=== PATIENT | female | born 1930 | race Caucasian/White ===

== ENCOUNTER 2017-11-17 08:36 | Inpatient (IN) | payer MEDICARE, OTHER ==
[2017-11-17] MEDS: SOD CHLORIDE 0.9% 500 ML IV ×2 (09:22→17:45)
[2017-11-17 09:23] LABS: ABNORMAL IP MESSAGE 1; HEMATOCRIT 29.3 % (37.0-47.0); HEMOGLOBIN 9.3 g/dl (12.0-16.0); MEAN CORPUSCULAR HGB CONC 31.7 g/dl (32.0-37.0); MEAN CORPUSCULAR VOLUME 94.5 fl (82.0-101.0); MEAN PLATELET VOLUME 11.9 fl (7.4-10.4); PLATELET COUNT 80 10^3/UL (140-415); RED CELL DISTRIBUTION WIDTH 17.2 % (11.5-14.5)
[2017-11-17 09:23] LABS: WHITE BLOOD COUNT 14.4 10^3/ul (4.8-10.8)
[2017-11-17 09:26] LABS: ADD MAN DIFF? YES; POSITIVE DIFF @See below
[2017-11-17 09:40] LABS: ALANINE AMINOTRANSFERASE 29 IU/L (13-69); ALBUMIN 3.2 g/dl (3.3-4.9); ALBUMIN/GLOBULIN RATIO 0.72; ALKALINE PHOSPHATASE 120 IU/L (42-121); ANION GAP 29 (8-16); ASPARTATE AMINO TRANSFERASE 52 IU/L (15-46); BILIRUBIN,INDIRECT 0.1 mg/dl (0-1.1); BILIRUBIN,TOTAL 0.1 mg/dl (0.2-1.3); BLOOD UREA NITROGEN 31 mg/dl (7-20); CALCIUM 9.7 mg/dl (8.4-10.2); CARBON DIOXIDE 16 mmol/L (21-31); CHLORIDE 94 mmol/L (97-110); CREATININE 11.21 mg/dl (0.44-1.00); GLUCOSE 109 mg/dl (70-220); POTASSIUM 4.2 mmol/L (3.5-5.1); SODIUM 135 mmol/L (135-144); TOTAL PROTEIN 7.6 g/dl (6.1-8.1)
[2017-11-17 09:52] LABS: TROPONIN-I 0.014 ng/ml (0.000-0.120)
[2017-11-17 10:08] LABS: ANISOCYTOSIS 1+ (0-0); BAND NEUTROPHILS #M 0.7 10^3/ul (0.0-0.6); BAND NEUTROPHILS % (M) 5 % (0-4); EOSINOPHILS % (M) 1 % (0-7); LYMPHOCYTES #M 1.1 10^3/ul (0.8-2.9); LYMPHOCYTES % (M) 8 % (15-51); METAMYELOCYTES #M 0.2 10^3/ul (0.0-0.0); METAMYELOCYTES %M 2 % (0-0); MONOCYTE #M 1.2 10^3/ul (0.3-0.9); MONOCYTES % (M) 9 % (0-11); PLATELET ESTIMATE SIG DECREASED; POIKILOCYTOSIS 3+ (0-0); REACTIVE LYMPHOCYTES #M 0.7 10^3/ul (0.0-0.0); REACTIVE LYMPHOCYTES% (M) 5 % (0-0); SEG NEUT #M 10.2 10^3/ul (1.6-7.5); SEGMENTED NEUTROPHILS (M) % 70 % (39-77); SMUDGE%M 14 % (0-0)
[2017-11-17] MEDS: SODIUM CHLORIDE 0.9% 1L BAG IV* (11:09)
[2017-11-17] MEDS: CEFEPIME 2GM/50 ML (PMX) 50 ML IVPB (11:10)
[2017-11-17] MEDS: VANCOMYCIN 1 GM (PMX) 250 ML IVPB (11:26)
[2017-11-17 11:45] LABS: LACTIC ACID 14.4 mmol/L (0.5-2.0)
[2017-11-17] MEDS ORDERED: ACETAMINOPHEN 325 MG TAB PO ×2 (12:30→13:00)
[2017-11-17] MEDS ORDERED: NACL 0.9% 3 ML SYG IV (13:00)
[2017-11-17] MEDS ORDERED: HYDROCODONE/APAP (5/325) TAB PO (13:00)
[2017-11-17 13:21] LABS: FLD MN% 72.1 %; FLD PMN% 27.9 %; FLD RBC 0 /uL; FLD WBC 197 /cmm
[2017-11-17 13:23] LABS: LACTIC ACID 13.1 mmol/L (0.5-2.0)
[2017-11-17 13:28] LABS: FLUID TOTAL PROTEIN < 2.0 g/dl
[2017-11-17] MEDS: SOD CHLORIDE 0.9% 1,000 ML IV (13:44)
[2017-11-17 13:54] LABS: FLD CLARITY HAZY
[2017-11-17 13:54] LABS: FLD TYPE PARACENTHESIS
[2017-11-17 13:55] LABS: FLD COLOR COLORLESS; PATH REVIEW? YES
[2017-11-17] MEDS: HEPARIN 5,000 UNIT/0.5 ML VIAL SC ×2 (14:22→21:26)
[2017-11-17 15:57] LABS: LACTIC ACID 11.3 mmol/L (0.5-2.0)
[2017-11-17] MEDS: CALCIUM ACETATE 667 MG CAP PO (18:39)
[2017-11-17 19:41] LABS: HEPATITIS B SURFACE ANTIBODY NEGATIVE (NEGATIVE)
[2017-11-17] MEDS ORDERED: DIFLUPREDNATE RIGHT EYE (21:00)
[2017-11-17] MEDS: LATANOPROST 0.005% 2.5 ML OPH BOTH EYES (21:00)
[2017-11-17 21:48] LABS: HEPATITIS B SURFACE ANTIGEN NEGATIVE (NEGATIVE)
[2017-11-18] MEDS: ONDANSETRON 4 MG INJ IV (00:08)
[2017-11-18] MEDS: HEPARIN 5,000 UNIT/0.5 ML VIAL SC ×3 (05:07→21:44)
[2017-11-18] MEDS: PANTOPRAZOLE (EC) 40 MG TAB PO (08:07)
[2017-11-18] MEDS: MULTIVIT/CA CARB/B CMPLX/FA TAB PO (08:07)
[2017-11-18] MEDS: CALCIUM ACETATE 667 MG CAP PO ×3 (08:07→17:28)
[2017-11-18 08:13] LABS: WHITE BLOOD COUNT 13.7 10^3/ul (4.8-10.8)
[2017-11-18 08:14] LABS: ABNORMAL IP MESSAGE 1; HEMATOCRIT 28.2 % (37.0-47.0); MEAN CORPUSCULAR HEMOGLOBIN 30.2 pg (29.0-33.0); MEAN CORPUSCULAR HGB CONC 31.9 g/dl (32.0-37.0); MEAN CORPUSCULAR VOLUME 94.6 fl (82.0-101.0); MEAN PLATELET VOLUME 11.8 fl (7.4-10.4); PLATELET COUNT 68 10^3/UL (140-415); RED BLOOD COUNT 2.98 10^6/ul (4.20-5.40); RED CELL DISTRIBUTION WIDTH 17.9 % (11.5-14.5)
[2017-11-18 08:16] LABS: ADD MAN DIFF? YES; POSITIVE DIFF @See below
[2017-11-18 09:02] LABS: ANION GAP 29 (8-16)
[2017-11-18 09:11] LABS: BLOOD UREA NITROGEN 32 mg/dl (7-20); CALCIUM 8.7 mg/dl (8.4-10.2); CARBON DIOXIDE 14 mmol/L (21-31); CHLORIDE 98 mmol/L (97-110); CREATININE 9.71 mg/dl (0.44-1.00); GLUCOSE 114 mg/dl (70-220); MAGNESIUM 1.7 mg/dl (1.7-2.5); POTASSIUM 3.7 mmol/L (3.5-5.1); SODIUM 137 mmol/L (135-144)
[2017-11-18 10:20] LABS: ANISOCYTOSIS 1+ (0-0); BAND NEUTROPHILS #M 0.9 10^3/ul (0.0-0.6); BAND NEUTROPHILS % (M) 7 % (0-4); LYMPHOCYTES #M 1.5 10^3/ul (0.8-2.9); LYMPHOCYTES % (M) 11 % (15-51); METAMYELOCYTES #M 0.1 10^3/ul (0.0-0.0); METAMYELOCYTES %M 1 % (0-0); MONOCYTE #M 0.5 10^3/ul (0.3-0.9); MONOCYTES % (M) 4 % (0-11); PLATELET ESTIMATE SIG DECREASED; POIKILOCYTOSIS 2+ (0-0); POLYCHROMASIA 1+ (0-0); REACTIVE LYMPHOCYTES #M 1.5 10^3/ul (0.0-0.0); REACTIVE LYMPHOCYTES% (M) 11 % (0-0); SEG NEUT #M 9.2 10^3/ul (1.6-7.5); SEGMENTED NEUTROPHILS (M) % 66 % (39-77); SMUDGE%M 18 % (0-0)
[2017-11-18 11:41] LABS: FLD MN% 55.5 %; FLD PMN% 44.5 %; FLD RBC 0 /uL; FLD WBC 18 /cmm
[2017-11-18] MEDS: SOD CHLORIDE 0.9% 500 ML IV (12:07)
[2017-11-18 12:10] LABS: LACTIC ACID 11.2 mmol/L (0.5-2.0)
[2017-11-18] MEDS: DUREZOL 0.05% RIGHT EYE (12:15)
[2017-11-18] MEDS: ONDANSETRON 4 MG TAB PO ×2 (12:27→22:57)
[2017-11-18 13:21] LABS: FLD TYPE ABDOMINAL
[2017-11-18 13:22] LABS: FLD CLARITY CLEAR; FLD COLOR COLORLESS
[2017-11-18 14:01] LABS: LACTIC ACID 9.7 mmol/L (0.5-2.0)
[2017-11-18] MEDS: LATANOPROST 0.005% 2.5 ML OPH BOTH EYES (20:56)
[2017-11-18] MEDS: DUREZOL 0.05% LEFT EYE (20:58)
[2017-11-19] MEDS: HEPARIN 5,000 UNIT/0.5 ML VIAL SC ×3 (06:00→21:23)
[2017-11-19] MEDS: MULTIVIT/CA CARB/B CMPLX/FA TAB PO (08:26)
[2017-11-19] MEDS: PANTOPRAZOLE (EC) 40 MG TAB PO (08:26)
[2017-11-19] MEDS: CALCIUM ACETATE 667 MG CAP PO ×3 (08:26→17:15)
[2017-11-19] MEDS: DUREZOL 0.05% LEFT EYE ×2 (08:29→21:19)
[2017-11-19 08:45] LABS: ABNORMAL IP MESSAGE 1; HEMATOCRIT 27.5 % (37.0-47.0); HEMOGLOBIN 8.8 g/dl (12.0-16.0); MEAN CORPUSCULAR HEMOGLOBIN 29.7 pg (29.0-33.0); MEAN CORPUSCULAR VOLUME 92.9 fl (82.0-101.0); MEAN PLATELET VOLUME 11.5 fl (7.4-10.4); RED BLOOD COUNT 2.96 10^6/ul (4.20-5.40)
[2017-11-19 08:45] LABS: WHITE BLOOD COUNT 14.6 10^3/ul (4.8-10.8)
[2017-11-19 08:53] LABS: ADD MAN DIFF? YES; PLATELET COUNT 51 10^3/UL (140-415); POSITIVE DIFF @See below
[2017-11-19 09:05] LABS: LACTIC ACID 7.3 mmol/L (0.5-2.0)
[2017-11-19 09:10] LABS: ANION GAP 20 (8-16); BLOOD UREA NITROGEN 42 mg/dl (7-20); CALCIUM 9.4 mg/dl (8.4-10.2); CARBON DIOXIDE 19 mmol/L (21-31); CHLORIDE 100 mmol/L (97-110); GLUCOSE 102 mg/dl (70-220); MAGNESIUM 1.8 mg/dl (1.7-2.5); PHOSPHORUS 5.3 mg/dl (2.5-4.9); POTASSIUM 4.1 mmol/L (3.5-5.1); SODIUM 135 mmol/L (135-144)
[2017-11-19 09:20] LABS: CREATININE 8.18 mg/dl (0.44-1.00)
[2017-11-19 10:06] LABS: ANISOCYTOSIS 1+ (0-0); BAND NEUTROPHILS #M 0.7 10^3/ul (0.0-0.6); BAND NEUTROPHILS % (M) 5 % (0-4); BURR CELLS 1+ (0-0); LYMPHOCYTES #M 3.6 10^3/ul (0.8-2.9); LYMPHOCYTES % (M) 25 % (15-51); METAMYELOCYTES #M 0.2 10^3/ul (0.0-0.0); METAMYELOCYTES %M 2 % (0-0); MONOCYTE #M 1.7 10^3/ul (0.3-0.9); MONOCYTES % (M) 12 % (0-11); MYELOCYTES #M 0.1 10^3/ul (0.0-0.0); MYELOCYTES % (M) 1 % (0-0); PLATELET ESTIMATE SIG DECREASED; POIKILOCYTOSIS 3+ (0-0); PROMYELOCYTES #M 0.1 10^3/ul (0-0); PROMYELOCYTES % (M) 1 % (0-0); REACTIVE LYMPHOCYTES #M 1.1 10^3/ul (0.0-0.0); REACTIVE LYMPHOCYTES% (M) 8 % (0-0); SEG NEUT #M 6.8 10^3/ul (1.6-7.5); SEGMENTED NEUTROPHILS (M) % 46 % (39-77); SMUDGE%M 48 % (0-0)
[2017-11-19] MEDS: HEPARIN 1000 UNITS/ML 10 ML INJ CATHETER (18:30)
[2017-11-19] MEDS: HEPARIN IRRIGATION (20:40)
[2017-11-19] MEDS: LATANOPROST 0.005% 2.5 ML OPH BOTH EYES (21:19)
[2017-11-20] MEDS: HEPARIN 5,000 UNIT/0.5 ML VIAL SC ×3 (05:30→22:49)
[2017-11-20] MEDS: PANTOPRAZOLE (EC) 40 MG TAB PO (06:32)
[2017-11-20 08:51] LABS: ABNORMAL IP MESSAGE 1; HEMATOCRIT 26.6 % (37.0-47.0); HEMOGLOBIN 8.9 g/dl (12.0-16.0); MEAN CORPUSCULAR HEMOGLOBIN 30.7 pg (29.0-33.0); MEAN CORPUSCULAR HGB CONC 33.5 g/dl (32.0-37.0); MEAN CORPUSCULAR VOLUME 91.7 fl (82.0-101.0); MEAN PLATELET VOLUME 11.9 fl (7.4-10.4); PLATELET COUNT 61 10^3/UL (140-415); RED CELL DISTRIBUTION WIDTH 17.5 % (11.5-14.5)
[2017-11-20 08:51] LABS: WHITE BLOOD COUNT 15.8 10^3/ul (4.8-10.8)
[2017-11-20 08:59] LABS: ADD MAN DIFF? YES; POSITIVE DIFF @See below
[2017-11-20 09:14] LABS: LACTIC ACID 5.6 mmol/L (0.5-2.0)
[2017-11-20] MEDS: CALCIUM ACETATE 667 MG CAP PO ×3 (09:29→18:07)
[2017-11-20] MEDS: MULTIVIT/CA CARB/B CMPLX/FA TAB PO (09:29)
[2017-11-20] MEDS: DUREZOL 0.05% LEFT EYE ×2 (09:29→21:11)
[2017-11-20 09:31] LABS: ANISOCYTOSIS 1+ (0-0); BAND NEUTROPHILS % (M) 13 % (0-4); BASOPHIL #M 0.1 10^3/ul (0.0-0.0); BASOPHILS % (M) 1 % (0-2); LYMPHOCYTES #M 2.8 10^3/ul (0.8-2.9); LYMPHOCYTES % (M) 18 % (15-51); MONOCYTE #M 1.1 10^3/ul (0.3-0.9); MONOCYTES % (M) 7 % (0-11); PLATELET ESTIMATE SIG DECREASED; REACTIVE LYMPHOCYTES #M 0.7 10^3/ul (0.0-0.0); REACTIVE LYMPHOCYTES% (M) 5 % (0-0); SEG NEUT #M 9.2 10^3/ul (1.6-7.5); SEGMENTED NEUTROPHILS (M) % 56 % (39-77); SMUDGE%M 14 % (0-0)
[2017-11-20 16:28] LABS: ANION GAP 22 (8-16); BLOOD UREA NITROGEN 46 mg/dl (7-20); CALCIUM 9.3 mg/dl (8.4-10.2); CARBON DIOXIDE 18 mmol/L (21-31); CHLORIDE 99 mmol/L (97-110); GLUCOSE 115 mg/dl (70-220); MAGNESIUM 1.8 mg/dl (1.7-2.5); PHOSPHORUS 5.9 mg/dl (2.5-4.9); SODIUM 135 mmol/L (135-144)
[2017-11-20] MEDS: EPOETIN 10000 UNITS/1 ML INJ (ESRD) SC (18:09)
[2017-11-20] MEDS: LATANOPROST 0.005% 2.5 ML OPH BOTH EYES (21:10)
[2017-11-21] MEDS: ONDANSETRON 4 MG TAB PO (04:54)
[2017-11-21] MEDS ORDERED: ONDANSETRON 4 MG INJ IV (05:00)
[2017-11-21] MEDS: PANTOPRAZOLE (EC) 40 MG TAB PO (05:25)
[2017-11-21] MEDS: HEPARIN 5,000 UNIT/0.5 ML VIAL SC (06:00)
[2017-11-21 09:02] LABS: ABNORMAL IP MESSAGE 1; HEMATOCRIT 25.6 % (37.0-47.0); HEMOGLOBIN 8.5 g/dl (12.0-16.0); MEAN CORPUSCULAR HEMOGLOBIN 30.4 pg (29.0-33.0); MEAN CORPUSCULAR HGB CONC 33.2 g/dl (32.0-37.0); MEAN CORPUSCULAR VOLUME 91.4 fl (82.0-101.0); MEAN PLATELET VOLUME 11.7 fl (7.4-10.4); PLATELET COUNT 52 10^3/UL (140-415); RED CELL DISTRIBUTION WIDTH 17.5 % (11.5-14.5)
[2017-11-21 09:02] LABS: WHITE BLOOD COUNT 13.7 10^3/ul (4.8-10.8)
[2017-11-21 09:03] LABS: POSITIVE DIFF @See below
[2017-11-21 09:04] LABS: ADD MAN DIFF? YES
[2017-11-21 09:38] LABS: ANISOCYTOSIS 1+ (0-0); BAND NEUTROPHILS #M 0.6 10^3/ul (0.0-0.6); BAND NEUTROPHILS % (M) 5 % (0-4); EOSINOPHILS % (M) 2 % (0-7); LYMPHOCYTES % (M) 15 % (15-51); METAMYELOCYTES #M 0.2 10^3/ul (0.0-0.0); METAMYELOCYTES %M 2 % (0-0); MONOCYTE #M 1.3 10^3/ul (0.3-0.9); MONOCYTES % (M) 10 % (0-11); MYELOCYTES #M 0.2 10^3/ul (0.0-0.0); MYELOCYTES % (M) 2 % (0-0); PLATELET ESTIMATE SIG DECREASED; POLYCHROMASIA 1+ (0-0); PROMYELOCYTES #M 0.1 10^3/ul (0-0); PROMYELOCYTES % (M) 1 % (0-0); REACTIVE LYMPHOCYTES #M 1.7 10^3/ul (0.0-0.0); REACTIVE LYMPHOCYTES% (M) 13 % (0-0); SEG NEUT #M 6.9 10^3/ul (1.6-7.5); SEGMENTED NEUTROPHILS (M) % 50 % (39-77); SMUDGE%M 27 % (0-0); SPHEROCYTES 1+ (0-0)
[2017-11-21 09:42] LABS: LACTIC ACID 3.6 mmol/L (0.5-2.0)
[2017-11-21] MEDS: DUREZOL 0.05% LEFT EYE ×2 (09:57→20:54)
[2017-11-21] MEDS: MULTIVIT/CA CARB/B CMPLX/FA TAB PO (09:57)
[2017-11-21] MEDS: CALCIUM ACETATE 667 MG CAP PO ×3 (09:57→17:46)
[2017-11-21 10:16] LABS: ANION GAP 19 (8-16); BLOOD UREA NITROGEN 47 mg/dl (7-20); CALCIUM 8.7 mg/dl (8.4-10.2); CARBON DIOXIDE 21 mmol/L (21-31); CHLORIDE 96 mmol/L (97-110); GLUCOSE 112 mg/dl (70-220); MAGNESIUM 1.8 mg/dl (1.7-2.5); POTASSIUM 3.7 mmol/L (3.5-5.1); SODIUM 132 mmol/L (135-144)
[2017-11-21 10:24] LABS: CREATININE 7.56 mg/dl (0.44-1.00)
[2017-11-21] MEDS: LATANOPROST 0.005% 2.5 ML OPH BOTH EYES (20:54)
[2017-11-22] MEDS: PANTOPRAZOLE (EC) 40 MG TAB PO (06:03)
[2017-11-22 06:43] LABS: ABNORMAL IP MESSAGE 1; HEMATOCRIT 24.3 % (37.0-47.0); MEAN CORPUSCULAR HEMOGLOBIN 29.6 pg (29.0-33.0); MEAN CORPUSCULAR HGB CONC 32.9 g/dl (32.0-37.0); MEAN PLATELET VOLUME 11.9 fl (7.4-10.4); NUCLEATED RED BLOOD CELLS% 0.2 /100WBC (0.0-0.0); PLATELET COUNT 53 10^3/UL (140-415); RED CELL DISTRIBUTION WIDTH 17.1 % (11.5-14.5)
[2017-11-22 06:43] LABS: WHITE BLOOD COUNT 14.1 10^3/ul (4.8-10.8)
[2017-11-22 07:00] LABS: POSITIVE DIFF @See below
[2017-11-22 07:01] LABS: ADD MAN DIFF? YES
[2017-11-22 07:34] LABS: ANION GAP 19 (8-16); BLOOD UREA NITROGEN 44 mg/dl (7-20); CALCIUM 8.1 mg/dl (8.4-10.2); CARBON DIOXIDE 23 mmol/L (21-31); CHLORIDE 93 mmol/L (97-110); CREATININE 7.96 mg/dl (0.44-1.00); GLUCOSE 113 mg/dl (70-220); MAGNESIUM 1.7 mg/dl (1.7-2.5); PHOSPHORUS 5.5 mg/dl (2.5-4.9); POTASSIUM 3.3 mmol/L (3.5-5.1); SODIUM 132 mmol/L (135-144)
[2017-11-22] MEDS: MULTIVIT/CA CARB/B CMPLX/FA TAB PO (08:49)
[2017-11-22] MEDS: CALCIUM ACETATE 667 MG CAP PO ×2 (08:49→12:21)
[2017-11-22] MEDS: DUREZOL 0.05% LEFT EYE (08:50)
[2017-11-22] MEDS: POTASSIUM CHLORIDE (SR) 20 MEQ TAB PO (08:55)
[2017-11-22 11:33] LABS: ANISOCYTOSIS 1+ (0-0); BAND NEUTROPHILS #M 0.2 10^3/ul (0.0-0.6); BAND NEUTROPHILS % (M) 2 % (0-4); EOSINOPHILS % (M) 3 % (0-7); ERYTHROBLAST% (NRBC) (M) 1 % (0-0); LYMPHOCYTES #M 6.3 10^3/ul (0.8-2.9); LYMPHOCYTES % (M) 45 % (15-51); MONOCYTE #M 0.7 10^3/ul (0.3-0.9); MONOCYTES % (M) 5 % (0-11); PLATELET ESTIMATE DECREASED; POLYCHROMASIA 1+ (0-0); REACTIVE LYMPHOCYTES #M 0.4 10^3/ul (0.0-0.0); REACTIVE LYMPHOCYTES% (M) 3 % (0-0); SEGMENTED NEUTROPHILS (M) % 42 % (39-77); SMUDGE%M 74 % (0-0)
== END 2017-11-22 15:38 | disposition home health service (06) | DRG 314 ==
LOC: E/R 08:36 → MS4 12:31
PROC: 3E1M39Z Irrigation of Peritoneal Cavity using Dialysate, Percutaneous Approach (ICD-10-PCS; principal; 2017-11-17)
DX: I95.89 Other hypotension (principal); N18.6 End stage renal disease; I12.0 Hypertensive chronic kidney disease with stage 5 chronic kidney disease or end stage renal disease; E87.2 Acidosis; D72.829 Elevated white blood cell count, unspecified; Z99.2 Dependence on renal dialysis; D64.9 Anemia, unspecified
CPT/HCPCS: 36415; 71045; 80048; 80053; 82962; 83605; 83735; 84100; 84157; 84484; 85025; 86706; 87040; 87070; 87081; 87102; 87116; 87340; 89051; 90945; 93005; 96374; 96375; 97161; 99291-25

== ENCOUNTER 2018-10-17 21:35 | Emergency (ER) | payer MEDICARE, OTHER | END 2018-10-17 23:21 | disposition home or self-care (01) | LOC: E/R 21:35 | DX: H53.8 Other visual disturbances (principal); I12.0 Hypertensive chronic kidney disease with stage 5 chronic kidney disease or end stage renal disease; N18.6 End stage renal disease; Z95.0 Presence of cardiac pacemaker | CPT/HCPCS: 99284; 99284-25 ==

== ENCOUNTER 2018-12-01 15:35 | Emergency (ER) | payer MEDICARE, OTHER | END 2018-12-01 19:17 | disposition home or self-care (01) | LOC: E/R 15:35 | DX: S22.41XA Multiple fractures of ribs, right side, initial encounter for closed fracture (principal); N18.6 End stage renal disease; I12.0 Hypertensive chronic kidney disease with stage 5 chronic kidney disease or end stage renal disease; W18.2XXA Fall in (into) shower or empty bathtub, initial encounter; Y92.89 Other specified places as the place of occurrence of the external cause; Z79.82 Long term (current) use of aspirin; Z95.0 Presence of cardiac pacemaker | CPT/HCPCS: 71045; 71100; 99283-25 ==